=== PATIENT | female | born 1955 | race Caucasian/White ===

== ENCOUNTER → 2024-05-31 07:48 | Outpatient (CLI) | payer MEDICARE, SELFPAY ==
--- NOTE | 2024-05-31 07:51 | DI.NM.S_ITS ---
PROCEDURE: NM EXERCISE TREADMILL NON NUC COMPARISON: None. INDICATIONS: CHAN,CARDIAC MURMUR FINDINGS: The patient exercised for 7 minutes and 41 seconds reaching 94% of maximum predicted heart rate (10.1METs, NIMISHA -12%). Appropriate BP response to exercise. No angina, no ectopy, and no angina during the study. IMPRESSION: Low risk, normal treadmill ECG only stress test with above average exercise tolerance (NIMISHA -12%). Dictated by: Gamaliel Mckeon MD on 05/31/2024 at 16:43 Approved by: Gamaliel Mckeon MD on 05/31/2024 at 16:45
== END ==
LOC: NUCM 07:50
PROVIDERS: Referring Provider Family Medicine; Visit Provider Family Medicine
DX: R06.09 Other forms of dyspnea (principal); R01.1 Cardiac murmur, unspecified
CPT/HCPCS: 93017